=== PATIENT | female | born 1980 | race Caucasian/White ===

== ENCOUNTER 2017-01-05 18:17 | Inpatient (IN) | payer MEDICAID ==
[2017-01-05] MEDS ORDERED: Sodium Chloride 0.9% 10 ML Syringe FLUSH PRN (18:51)
[2017-01-05] MEDS ORDERED: Nalbuphine 20 MG/1 ML Amp IVPUSH PRN (18:51)
[2017-01-05] MEDS ORDERED: Lidocaine 1% 50 ML MDV INJECT ONE (18:51)
[2017-01-05] MEDS ORDERED: Ondansetron 4 MG/2 ML SDV IVPUSH PRN ×2 (18:51→19:55)
[2017-01-05] MEDS ORDERED: Oxytocin/Lactated Ringers 10 UNIT/1,000 ML BAG IV SCH ×2 (19:00)
--- NOTE | 2017-01-05 19:11 | PCM.LDHP ---
L&D History of Present Illness - General Date of Service: 01/05/17 Admit Problem/Dx: Patient Status Order with Admit Dx/Problem 01/05/17 18:51 Patient Status [ADT] Routine Admission Diagnosis/Problem Admission Diagnosis/Problem - History of Present Illness Introduction:: 36 year old [id number] female at 40w0d here from [facility] in active labor. PNC x 3 visit in Deport. No complications other than incarceration. - Related Data Allergies/Adverse Reactions: Allergies Allergy/AdvReac Type Severity Reaction Status Date / Time No Known Allergies Allergy Verified 12/09/16 23:07 CDT Social & Family History - Recreational Drug Use Recreational Drug Use: Yes Drug Use in Last 12 Months: No H&P Review of Systems - Review of Systems: Review Of Systems: See Below General: Reports: No Symptoms HEENT: Reports: No Symptoms Pulmonary: Reports: No Symptoms Cardiovascular: Reports: No Symptoms Gastrointestinal: Reports: No Symptoms Genitourinary: Reports: No Symptoms Musculoskeletal: Reports: No Symptoms Skin: Reports: No Symptoms Psychiatric: Reports: No Symptoms Neurological: Reports: No Symptoms Hematologic/Lymphatic: Reports: No Symptoms Immunologic: Reports: No Symptoms L&D Exam - Exam Exam: See Below - Vital Signs Weight: 82.554 kg - OB Specific Contraction Intensity: Mild to Moderate Movement: Active Heart Tones: Present Heart Rate (FHR) Variability: Moderate (6-25 bmp) Presentation: Vertex - Preciado Score Preciado Score Cervix Position: Midposition Preciado Score Consistency: Medium Preciado Score Effacement: >80% Preciado Score Dilation: 3-4 cm Preciado Score Infant's Station: -2 Preciado Score Total: 8 - Exam General: Alert, Oriented HEENT: PERRLA, Conjunctiva Clear, EACs Clear, EOMI, Hearing Intact, Mucosa Moist & Mamou, Nares Patent, Normal Nasal Septum, Posterior Pharynx Clear, TMs Clear Neck: Supple, Trachea Midline Lungs: Clear to Auscultation, Normal Respiratory Effort Cardiovascular: Regular Rate, Regular Rhythm GI/Abdominal Exam: Normal Bowel Sounds, Soft, Non-Tender, No Organomegaly, No Distention, No Abnormal Bruit, No Mass, Pelvis Stable Genitourinary: Normal external exam, Normal bimanual exam Back Exam: Normal Inspection, Full Range of Motion Extremities: Normal Inspection, Normal Range of Motion, Non-Tender, No Pedal Edema, Normal Capillary Refill Skin: Warm, Dry, Intact Neurological: Cranial Nerves Intact, Reflexes Equal Bilateral Psychiatric: Alert, Normal Affect, Normal Mood Problem List Initiated/Reviewed/Updated: Yes Orders Last 24hrs: Active Orders 24 hr Category Date Time Status Patient Status [ADT] Routine ADT 01/05/17 18:51 Active Activity as Tolerated [RC] PFP Care 01/05/17 18:51 Active Communication Order [RC] ASDIRECTED Care 01/05/17 18:51 Active Heart Tones [RC] ASDIRECTED Care 01/05/17 18:51 Active Notify Provider [RC] PFP Care 01/05/17 18:51 Active Notify Provider [RC] PRN Care 01/05/17 18:51 Active Peripheral IV Care [RC] . DIRECTED Care 01/05/17 18:51 Active Pump Management, Intrathecal [RC] ASDIRECTED Care 01/05/17 18:55 Active Vital Signs [RC] PER UNIT ROUTINE Care 01/05/17 18:51 Active Clear Liquid Diet [DIET] Diet 01/05/17 Dinner Active CBC WITH AUTO DIFF [HEME] Stat Lab 01/05/17 18:51 Ordered DRUG SCREEN, URINE [URCHEM] Stat Lab 01/05/17 18:51 Uncollected TYPE AND SCREEN [BBK] Stat Lab 01/05/17 18:51 Ordered UA W/MICROSCOPIC [URIN] Stat Lab 01/05/17 18:30 Uncollected Lactated Ringers [Ringers, Lactated] 1,000 ml Med 01/05/17 19:00 Active IV ASDIRECTED Nalbuphine [Nubain] Med 01/05/17 18:51 Active 10 mg IVPUSH Q2H PRN Ondansetron [Zofran] Med 01/05/17 18:51 Active 4 mg IVPUSH Q4H PRN Oxytocin/Lactated Ringers [Pitocin in LR 10 Units/1,000 Med 01/05/17 19:00 Active ML] 10 unit in 1,000 ml IV .CONTINUOUS Oxytocin/Lactated Ringers [Pitocin in LR 10 Units/1,000 Med 01/05/17 19:00 Active ML] 10 unit in 1,000 ml IV TITRATE Sodium Chloride 0.9% [Saline Flush] Med 01/05/17 18:51 Active 10 ml FLUSH ASDIRECTED PRN Electronic Heart Tones Ext w TOCO [WOMSER] Oth 01/05/17 18:51 Ordered Routine Electronic Heart Tones Internal [WOMSER] Per Unit Ot 01/05/17 18:51 Ordered Routine Peripheral IV Insertion Adult [OM.PC] Routine Ot 01/05/17 18:51 Ordered Resuscitation Status Routine Resus Stat 01/05/17 18:51 Ordered Medication Orders Lactated Ringer's (Ringers, Lactated) 1,000 mls @ 100 mls/hr IV ASDIRECTED LUIS ALBERTO Oxytocin/Lactated Ringer's (Pitocin In Lr 10 Units/1,000 Ml) 10 unit in 1,000 mls @ 12 mls/hr IV TITRATE LUIS ALBERTO; 2 MUNITS/MIN PRN Reason: Protocol Oxytocin/Lactated Ringer's (Pitocin In Lr 10 Units/1,000 Ml) 10 unit in 1,000 mls @ 500 mls/hr IV .CONTINUOUS LUIS ALBERTO Nalbuphine HCl (Nubain) 10 mg IVPUSH Q2H PRN PRN Reason: Pain (moderate 4-6) Ondansetron HCl (Zofran) 4 mg IVPUSH Q4H PRN PRN Reason: Nausea/Vomiting Sodium Chloride (Saline Flush) 10 ml FLUSH ASDIRECTED PRN PRN Reason: Keep Vein Open Assessment/Plan Comment:: Term labor. Anticipate .
[2017-01-05] MEDS ORDERED: fentaNYL 100 MCG/2 ML SDV ONE (19:50)
[2017-01-05] MEDS ORDERED: diphenhydrAMINE 50 MG/ML SDV IVPUSH PRN (19:55)
[2017-01-05] MEDS ORDERED: fentaNYL 100 MCG/2 ML SDV EPIDUR PRN (19:55)
[2017-01-05] MEDS ORDERED: ePHEDrine 50 MG/ML SDV IVPUSH PRN (19:55)
[2017-01-05] MEDS ORDERED: Bupivacaine/fentaNYL/NS 100 ML Bag EPIDUR SCH (20:00)
--- NOTE | 2017-01-05 20:00 | PCM.PREANE ---
Preanesthetic Assessment - Procedure Proposed Procedure: Labor Epidural - Anesthesia/Transfusion/Family Hx Anesthesia History: Prior Anesthesia Without Reaction Family History of Anesthesia Reaction: No Transfusion History: No Prior Transfusion(s) Type of Transfusion Reactions: Reports: Unknown Intubation History: Unknown - Review of Systems General: No Symptoms Pulmonary: No Symptoms Cardiovascular: No Symptoms Gastrointestinal: Other (GERD with ) Neurological: No Symptoms Other: Reports: Depression, Anxiety - Physical Assessment NPO Status Date: 01/05/17 NPO Status Time: 19:30 Pulse: 71 O2 Sat by Pulse Oximetry: 100 Respiratory Rate: 20 Blood Pressure: 127/57 Temperature: 36.3 C Height: 1.7 m Weight: 82.554 kg ASA Class: 2 Mental Status: Alert & Oriented x3 Airway Class: Mallampati = 1 Dentition: Reports: Missing Tooth/Teeth (multiple molars ) Thyro-Mental Finger Breadths: 3 Mouth Opening Finger Breadths: 3 ROM/Head Extension: Full Lungs: Clear to Auscultation, Normal Respiratory Effort Cardiovascular: Regular Rate, Regular Rhythm - Lab Values: Laboratory Last Values WBC 12.29 K/mm3 (3.98-10.04) H 01/05/17 19:19 RBC 3.67 M/mm3 (3.98-5.22) L 01/05/17 19:19 Hgb 11.4 gm/L (11.2-15.7) 01/05/17 19:19 Hct 32.6 % (34.1-44.9) L 01/05/17 19:19 MCV 88.8 fl (79.4-94.8) 01/05/17 19:19 MCH 31.1 pg (25.6-32.2) 01/05/17 19:19 MCHC 35.0 g/dl (32.2-35.5) 01/05/17 19:19 RDW Std Deviation 43.9 fL (36.4-46.3) 01/05/17 19:19 Plt Count 311 K/mm3 (182-369) 01/05/17 19:19 MPV 10.0 fl (9.4-12.3) 01/05/17 19:19 Neut % (Auto) 69.5 % (34.0-71.1) 01/05/17 19:19 Lymph % (Auto) 20.4 % (19.3-51.7) 01/05/17 19:19 [place] % (Auto) 8.2 % (4.7-12.5) 01/05/17 19:19 Eos % (Auto) 1.4 (0.7-5.8) 01/05/17 19:19 Baso % (Auto) 0.1 % (0.1-1.2) 01/05/17 19:19 Neut # (Auto) 8.54 K/mm3 (1.56-6.13) H 01/05/17 19:19 Lymph # (Auto) 2.51 K/mm3 (1.18-3.74) 01/05/17 19:19 [place] # (Auto) 1.01 K/mm3 (0.24-0.36) H 01/05/17 19:19 Eos # (Auto) 0.17 K/mm3 (0.04-0.36) 01/05/17 19:19 Baso # (Auto) 0.01 K/mm3 (0.01-0.08) 01/05/17 19:19 Blood Type O POSITIVE 01/05/17 19:19 - Allergies Allergies/Adverse Reactions: Allergies Allergy/AdvReac Type Severity Reaction Status Date / Time No Known Allergies Allergy Verified 12/09/16 23:07 CDT - Blood Blood Available: No Product(s) Available: None - Anesthesia Plan Pre-Op Medication Ordered: None - Acknowledgements Anesthesia Type Planned: Epidural Pt an Appropriate Candidate for the Planned Anesthesia: Yes Alternatives and Risks of Anesthesia Discussed w Pt/Guardian: Yes Pt/Guardian Understands and Agrees with Anesthesia Plan: Yes PreAnesthesia Questionnaire - SUBSTANCE USE Recreational Drug Use History: Yes - CURRENT (IN HOUSE) MEDS Current Meds: Current Medications Lactated Ringer's (Ringers, Lactated) 1,000 mls @ 100 mls/hr IV ASDIRECTED LUIS ALBERTO Oxytocin/Lactated Ringer's (Pitocin In Lr 10 Units/1,000 Ml) 10 unit in 1,000 mls @ 12 mls/hr IV TITRATE LUIS ALBERTO; 2 MUNITS/MIN PRN Reason: Protocol Oxytocin/Lactated Ringer's (Pitocin In Lr 10 Units/1,000 Ml) 10 unit in 1,000 mls @ 500 mls/hr IV .CONTINUOUS LUIS ALBERTO Nalbuphine HCl (Nubain) 10 mg IVPUSH Q2H PRN PRN Reason: Pain (moderate 4-6) Ondansetron HCl (Zofran) 4 mg IVPUSH Q4H PRN PRN Reason: Nausea/Vomiting Sodium Chloride (Saline Flush) 10 ml FLUSH ASDIRECTED PRN PRN Reason: Keep Vein Open Discontinued Medications Fentanyl (Sublimaze) Confirm Administered Dose 100 mcg .ROUTE .Navmii-Payoneer ONE Stop: 01/05/17 19:51 Lidocaine HCl (Xylocaine 1%) 1 ml INJECT ONETIME ONE Stop: 01/05/17 18:52
[2017-01-05] MEDS: Lactated Ringers 1,000 ML IV SCH ×2 (20:12→20:14)
[2017-01-05] MEDS ORDERED: Bupivacaine 0.25% 10 ML SDV ONE (22:22)
[2017-01-05] MEDS ORDERED: Witch Hazel Medicated Pads 100/Jar TOP PRN (22:41)
[2017-01-05] MEDS ORDERED: Docusate Sodium 100 MG Cap PO PRN (22:41)
[2017-01-05] MEDS ORDERED: Benzocaine/Menthol 20%-0.5% Spray 56 GM Canister TOP PRN (22:41)
[2017-01-05] MEDS ORDERED: Lanolin 100% Cream 7 GM Tube TOP PRN (22:41)
[2017-01-06] MEDS ORDERED: Diphtheria,Pertussis(Acell),Tetanus Vaccine 0.5 ML SDV IM ONE (02:00)
[2017-01-06] MEDS: Ibuprofen 600 MG Tab PO PRN ×2 (04:38→12:24)
--- NOTE | 2017-01-06 07:15 | PCM.PNPP ---
- General Info Date of Service: 01/06/17 Functional Status: Reports: Pain Controlled - Review of Systems General: Reports: No Symptoms HEENT: Reports: No Symptoms Pulmonary: Reports: No Symptoms Cardiovascular: Reports: No Symptoms Gastrointestinal: Reports: No Symptoms Genitourinary: Reports: No Symptoms Musculoskeletal: Reports: No Symptoms Skin: Reports: No Symptoms Neurological: Reports: No Symptoms Psychiatric: Reports: No Symptoms - General Info Date of Service: 01/06/17 - Patient Data Vital Signs - most recent: Last Vital Signs Temp 36.9 C 01/06/17 04:21 Pulse 79 01/06/17 04:21 Resp 18 01/06/17 04:21 BP 110/59 L 01/06/17 04:21 Pulse Ox 99 01/06/17 04:21 Weight - most recent: 82.554 kg I&O - last 24 hours: Intake & Output 01/05/17 01/06/17 01/06/17 22:59 06:59 14:59 Intake Total 3000 Balance 3000 Lab Results - last 24 hrs: Laboratory Results - last 24 hr 01/05/17 01/05/17 01/05/17 Range/Units 19:19 19:19 20:00 WBC 12.29 H (3.98-10.04) K/mm3 RBC 3.67 L (3.98-5.22) M/mm3 Hgb 11.4 (11.2-15.7) gm/L Hct 32.6 L (34.1-44.9) % MCV 88.8 (79.4-94.8) fl MCH 31.1 (25.6-32.2) pg MCHC 35.0 (32.2-35.5) g/dl RDW Std Deviation 43.9 (36.4-46.3) fL Plt Count 311 (182-369) K/mm3 MPV 10.0 (9.4-12.3) fl Neut % (Auto) 69.5 (34.0-71.1) % Lymph % (Auto) 20.4 (19.3-51.7) % Wise % (Auto) 8.2 (4.7-12.5) % Eos % (Auto) 1.4 (0.7-5.8) Baso % (Auto) 0.1 (0.1-1.2) % Neut # (Auto) 8.54 H (1.56-6.13) K/mm3 Lymph # (Auto) 2.51 (1.18-3.74) K/mm3 Wise # (Auto) 1.01 H (0.24-0.36) K/mm3 Eos # (Auto) 0.17 (0.04-0.36) K/mm3 Baso # (Auto) 0.01 (0.01-0.08) K/mm3 MRSA (PCR) Negative Blood Type O POSITIVE Gel Antibody Screen Negative Med Orders - Current: Current Medications Benzocaine/Menthol (Dermoplast Pain Relief [place]) 0 gm TOP ASDIRECTED PRN PRN Reason: Perineal Comfort Measure Docusate Sodium (Colace) 100 mg PO BID PRN PRN Reason: Constipation Emollient Ointment (Lansinoh Hpa) 0 gm TOP ASDIRECTED PRN PRN Reason: Sore Nipples Ibuprofen (Motrin) 600 mg PO Q6H PRN PRN Reason: Mild pain or fever Last Admin: 01/06/17 04:38 Dose: 600 mg Witch Grisel (Tucks) 1 pad TOP ASDIRECTED PRN PRN Reason: Hemorrhoid pain Discontinued Medications Diphenhydramine HCl (Benadryl) 25 mg IVPUSH Q6H PRN PRN Reason: Pruritis Diphtheria/Tetanus/Acell Pertussis (Adacel) 0.5 ml IM .ONCE ONE Stop: 01/06/17 02:01 Ephedrine Sulfate (Ephedrine Sulfate) 5 mg IVPUSH ASDIRECTED PRN PRN Reason: Hypotension Fentanyl (Sublimaze) Confirm Administered Dose 100 mcg .ROUTE .STK-MED ONE Stop: 01/05/17 19:51 Fentanyl (Sublimaze) 100 mcg EPIDUR Q3H PRN PRN Reason: Pain Last Admin: 01/05/17 20:25 Dose: 100 mcg Fentanyl/Bupivacaine HCl (Fentanyl/Bupivacaine/Ns 2 Mcg-0.125% 100 Ml) 100 ml EPIDUR ASDIRECTED [facility] Last Admin: 01/05/17 20:25 Dose: 100 ml Lactated Ringer's (Ringers, Lactated) 1,000 mls @ 100 mls/hr IV ASDIRECTED [facility] Last Admin: 01/05/17 20:14 Dose: 100 mls/hr Oxytocin/Lactated Ringer's (Pitocin In Lr 10 Units/1,000 Ml) 10 unit in 1,000 mls @ 12 mls/hr IV TITRATE LUIS ALBERTO; 2 MUNITS/MIN PRN Reason: Protocol Oxytocin/Lactated Ringer's (Pitocin In Lr 10 Units/1,000 Ml) 10 unit in 1,000 mls @ 500 mls/hr IV .CONTINUOUS LUIS ALBERTO Last Admin: 01/05/17 23:44 Dose: 500 mls/hr Lidocaine HCl (Xylocaine 1%) 1 ml INJECT ONETIME ONE Stop: 01/05/17 18:52 Nalbuphine HCl (Nubain) 10 mg IVPUSH Q2H PRN PRN Reason: Pain (moderate 4-6) Ondansetron HCl (Zofran) 4 mg IVPUSH Q4H PRN PRN Reason: Nausea/Vomiting Ondansetron HCl (Zofran) 4 mg IVPUSH ONETIME PRN PRN Reason: Nausea/Vomiting Sodium Chloride (Saline Flush) 10 ml FLUSH ASDIRECTED PRN PRN Reason: Keep Vein Open - Interaction Disposition, : in Room with Family Interaction: Holding Infant Support Person: Sister - Recovery Exam Fundal Tone: Firm Fundal Level: At Umbilicus Fundal Placement: Midline Lochia Amount: Small Lochia Color: Rubra/Red Bladder Status: Voiding - Exam General: alert, oriented HEENT: Pupils equal Neck: supple Lungs: Clear to Auscultation, Normal Respiratory Effort Cardiovascular: Regular Rate, Regular Rhythm GI/Abdominal Exam: Normal Bowel Sounds, Soft, Non-Tender, No Organomegaly, No Distention, No Abnormal Bruit, No Mass, Pelvis Stable Extremities: Normal Inspection, Normal Range of Motion, Non-Tender, No Pedal Edema, Normal Capillary Refill Skin: warm, dry, intact Wound/Incisions: healing well Neurological: no new focal deficit Psy/Mental Status: alert, normal affect, normal mood - Problem List Review Problem List Initiated/Reviewed/Updated: Yes - My Orders Last 24 Hours: My Active Orders 01/05/17 18:51 Patient Status [ADT] Routine Activity as Tolerated [RC] PFP Communication Order [RC] ASDIRECTED Heart Tones [RC] ASDIRECTED Notify Provider [RC] PFP Notify Provider [RC] PRN Peripheral IV Care [RC] . DIRECTED Vital Signs [RC] PER UNIT ROUTINE Resuscitation Status Routine 01/05/17 18:55 Pump Management, Intrathecal [RC] ASDIRECTED 01/05/17 22:41 Patient Status [ADT] Routine Activity as Tolerated [RC] .PRN Vital Signs [RC] 04,12,20 Consult to Customs Consultant [CONS] Stat Benzocaine/Menthol [Dermoplast Pain Relief [place]] See Dose Instructions TOP ASDIRECTED PRN Docusate Sodium [Colace] 100 mg PO BID PRN Ibuprofen [Motrin] 600 mg PO Q6H PRN Lanolin [Lansinoh HPA] See Dose Instructions TOP ASDIRECTED PRN Witch Grisel [Tucks] 1 pad TOP ASDIRECTED PRN Assess Lochia [WOMSER] Per Unit Routine Assess Uterine Involution [WOMSER] Per Unit Routine Breast Pump [WOMSER] Per Unit Routine Heat Therapy [OM.PC] PRN Medication Administration Instruction [OM.PC] Routine Perineal Care [OM.PC] Per Unit Routine Sitz Bath [OM.PC] Per Unit Routine 01/05/17 Breakfast Regular Diet [DIET] 01/06/17 01:38 Vaccines to be Administered [RC] .PRN 01/06/17 22:41 Heat Therapy [OM.PC] PRN - Assessment Assessment:: PPD1 s/p . Doing well. - Plan Plan:: Term labor now PPD1. Doing great. Home tomorrow.
--- NOTE | 2017-01-06 19:37 | PCM48HPAN ---
Post Anesthesia Note - EVALUATION WITHIN 48HRS OF ANESTHETIC Vital Signs in Normal Range: Yes Patient Participated in Evaluation: Yes Respiratory Function Stable: Yes Airway Patent: Yes Cardiovascular Function Stable: Yes Hydration Status Stable: Yes Pain Control Satisfactory: Yes Nausea and Vomiting Control Satisfactory: Yes Mental Status Recovered: Yes - COMMENTS/OBSERVATIONS Free Text/Narrative:: Patient denies any headaches, residual N/T to LE, or back pain.
[2017-01-07] MEDS: Ibuprofen 600 MG Tab PO PRN (00:35)
[2017-01-07 06:00] VITALS: BP 103/67
--- NOTE | 2017-01-07 09:22 | PCM.DCSUM1 ---
Discharge Summary - Hospital Course Brief History: admitted in labor. Unremarkable . - Discharge Data Discharge Date: 01/07/17 Discharge Disposition: Home, Self-Care 01 Condition: Good - Patient Summary/Data Consults: Consultations 01/05/17 22:41 Consult to Vegetable Farming Supervisor [CONS] Stat - Patient Instructions Diet: Usual Diet as Tolerated Activity: No Strenuous Activities Activity, Other: pelvic rest Notify Provider of: Fever, Increased Pain, Swelling and Redness, Drainage, Nausea and/or Vomiting - Discharge Plan Referrals: Lou Amato MD [Physician] - (6 week) - Discharge Summary/Plan Comment DC Time >30 min.: No - General Info Functional Status: Reports: Pain Controlled - Review of Systems General: Reports: No Symptoms HEENT: Reports: No Symptoms Pulmonary: Reports: No Symptoms Cardiovascular: Reports: No Symptoms Gastrointestinal: Reports: No Symptoms Genitourinary: Reports: No Symptoms Musculoskeletal: Reports: No Symptoms Skin: Reports: No Symptoms Neurological: Reports: No Symptoms Psychiatric: Reports: No Symptoms - Patient Data Vitals - Most Recent: Last Vital Signs Temp 36.2 C 01/07/17 03:30 Pulse 58 L 01/07/17 03:30 Resp 16 01/07/17 03:30 BP 103/67 01/07/17 03:30 Pulse Ox 98 01/07/17 03:30 Weight - Most Recent: 82.554 kg Med Orders - Current: Current Medications Benzocaine/Menthol (Dermoplast Pain Relief [place]) 0 gm TOP ASDIRECTED PRN PRN Reason: Perineal Comfort Measure Docusate Sodium (Colace) 100 mg PO BID PRN PRN Reason: Constipation Emollient Ointment (Lansinoh Hpa) 0 gm TOP ASDIRECTED PRN PRN Reason: Sore Nipples Ibuprofen (Motrin) 600 mg PO Q6H PRN PRN Reason: Mild pain or fever Last Admin: 01/07/17 00:35 Dose: 600 mg Witch Grisel (Tucks) 1 pad TOP ASDIRECTED PRN PRN Reason: Hemorrhoid pain Discontinued Medications Diphenhydramine HCl (Benadryl) 25 mg IVPUSH Q6H PRN PRN Reason: Pruritis Diphtheria/Tetanus/Acell Pertussis (Adacel) 0.5 ml IM .ONCE ONE Stop: 01/06/17 02:01 Last Admin: 01/06/17 12:23 Dose: 0.5 ml Ephedrine Sulfate (Ephedrine Sulfate) 5 mg IVPUSH ASDIRECTED PRN PRN Reason: Hypotension Fentanyl (Sublimaze) Confirm Administered Dose 100 mcg .ROUTE .STK-MED ONE Stop: 01/05/17 19:51 Fentanyl (Sublimaze) 100 mcg EPIDUR Q3H PRN PRN Reason: Pain Last Admin: 01/05/17 20:25 Dose: 100 mcg Fentanyl/Bupivacaine HCl (Fentanyl/Bupivacaine/Ns 2 Mcg-0.125% 100 Ml) 100 ml EPIDUR ASDIRECTED LUIS ALBERTO Last Admin: 01/05/17 20:25 Dose: 100 ml Lactated Ringer's (Ringers, Lactated) 1,000 mls @ 100 mls/hr IV ASDIRECTED LUIS ALBERTO Last Admin: 01/05/17 20:14 Dose: 100 mls/hr Oxytocin/Lactated Ringer's (Pitocin In Lr 10 Units/1,000 Ml) 10 unit in 1,000 mls @ 12 mls/hr IV TITRATE LUIS ALBERTO; 2 MUNITS/MIN PRN Reason: Protocol Oxytocin/Lactated Ringer's (Pitocin In Lr 10 Units/1,000 Ml) 10 unit in 1,000 mls @ 500 mls/hr IV .CONTINUOUS LUIS ALBERTO Last Admin: 01/05/17 23:44 Dose: 500 mls/hr Lidocaine HCl (Xylocaine 1%) 1 ml INJECT ONETIME ONE Stop: 01/05/17 18:52 Nalbuphine HCl (Nubain) 10 mg IVPUSH Q2H PRN PRN Reason: Pain (moderate 4-6) Ondansetron HCl (Zofran) 4 mg IVPUSH Q4H PRN PRN Reason: Nausea/Vomiting Ondansetron HCl (Zofran) 4 mg IVPUSH ONETIME PRN PRN Reason: Nausea/Vomiting Sodium Chloride (Saline Flush) 10 ml FLUSH ASDIRECTED PRN PRN Reason: Keep Vein Open - Exam General: Reports: alert, oriented HEENT: Reports: Pupils equal, Pupils reactive, EOMI, Mucous membr. moist/pink Neck: Reports: supple Lungs: Reports: Clear to Auscultation, Normal Respiratory Effort Cardiovascular: Reports: Regular Rate, Regular Rhythm GI/Abdominal Exam: Normal Bowel Sounds, Soft, Non-Tender, No Organomegaly, No Distention, No Abnormal Bruit, No Mass, Pelvis Stable (Female) Exam: Normal External Exam, Normal Speculum Exam, Normal Bimanual Exam Rectal (Female) Exam: Normal Exam, Normal Rectal Tone Extremities: Normal Inspection, Normal Range of Motion, Non-Tender, No Pedal Edema, Normal Capillary Refill Skin: Reports: warm, dry, intact Wound/Incisions: Reports: healing well Neurological: Reports: no new focal deficit Psy/Mental Status: Reports: alert, normal affect, normal mood *Q Meaningful Use (DIS) - VTE *Q VTE Criteria *Q: - Stroke *Q Stroke Criteria *Q: - AMI *Q AMI Criteria *Q:
== END 2017-01-07 10:10 | disposition home or self-care (01) | DRG 775 ==
LOC: JD.OBCHECK 18:17 → JD.OB 18:23 → JD.OBCHECK 18:51 → JD.OB 18:51 → OBSVTOIN 21:47 → JD.OB 22:16
PROVIDERS: ADMIT Obstetrics & Gynecology; ATTEND Obstetrics & Gynecology
PROC: 10E0XZZ Delivery of Products of Conception, External Approach (ICD-10-PCS; principal; 2017-01-05)
PROC: 10907ZC Drainage of Amniotic Fluid, Therapeutic from Products of Conception, Via Natural or Artificial Opening (ICD-10-PCS; 2017-01-05)
PROC: 00HU33Z Insertion of Infusion Device into Spinal Canal, Percutaneous Approach (ICD-10-PCS; 2017-01-05)
PROC: 3E0R3CZ (ICD-10-PCS; 2017-01-05)
DX: O80 Encounter for full-term uncomplicated delivery (principal); Z3A.40 40 weeks gestation of pregnancy; Z37.0 Single live birth
CPT/HCPCS: 36415; 85025; 86850; 86900; 86901; 87641; 90715; A9270-GY; J2590; J3010; J7120